=== PATIENT | male | born 1965 | race Hispanic/Latino ===

== ENCOUNTER 2018-02-05 17:10 | Observation (INO) | payer OTHER, SELFPAY ==
[2018-02-05] MEDS ORDERED: Albuterol-Ipratrop 3 mg / 0.5 (3 ml) UD INH STA ×3 (17:39→17:40)
[2018-02-05] MEDS ORDERED: Azithromycin 500 MG in Sodium Chloride 0.9% 250 ML IVPB STA (17:42)
--- NOTE | 2018-02-05 17:44 | ED PDOC ---
HPI: General Adult Time Seen by Provider: 02/05/18 17:40 Chief Complaint (Nursing): Chest Pain Chief Complaint (Provider): shortness of breath History Per: Patient History/Exam Limitations: language barrier (malay speaking) Onset/Duration Of Symptoms: Days (7) Have you had recent travel within the past 21 days to any of the following countries: [place], [place], [place] or [place]?: No Current Symptoms Are (Timing): Still Present Severity: Severe Pain Scale Rating Of: 10 Additional Complaint(s): pt p/w + ~ 1 week onset of sob/coughing, dry/non-productive, + wheezing, + worsening right sided chest pain; pain was severe today and as a result he came to the ED for further eval; pt states he was evaluated at [facility] 4 days ago for the same complaints and was prescribed ABX and coughing medications ; pt states no improvement; pt states no fever/chills/sweats, + dizziness/ lightheadedness, no abd pain, no n/v, no numbness/tingling, no urinary/bowel changes, no rashes; no gross bleeding, no fall/trauma/sick contact, no international travel consultant denied other complaints pt is here for further eval PCP: None Past Medical History Reviewed: Historical Data, Nursing Documentation, Vital Signs Vital Signs: Last Vital Signs Temp 98.4 F 02/05/18 19:07 Pulse 91 H 02/05/18 19:07 Resp 18 02/05/18 19:07 BP 147/89 02/05/18 19:07 Pulse Ox 97 02/05/18 19:18 - Medical History PMH: Cardia Arrhythmia, Hyperlipidemia, Kidney Stones, Chronic Kidney Disease - Surgical History Other surgeries: kidney surgery - Family History Family History: States: No Known Family Hx - Living Arrangements Living Arrangements: With Family - Social History Current smoker - smoking cessation education provided: No Ex-Smoker (has not smoked in the last 12 months): No Alcohol: None Drugs: Denies - Home Medications Home Medications: Ambulatory Orders Medication Instructions Recorded Ondansetron [Zofran] 4 mg PO Q8H #5 tab 11/25/15 - Allergies Allergies/Adverse Reactions: Allergies Allergy/AdvReac Type Severity Reaction Status Date / Time No Known Allergies Allergy Verified 02/05/18 17:20 Review of Systems ROS Statement: Except As Marked, All Systems Reviewed And Found Negative Constitutional: Negative for: Fever, Weakness Eyes: Negative for: Pain ENT: Negative for: Ear Pain Cardiovascular: Positive for: Chest Pain Respiratory: Positive for: Cough, Shortness of Breath, Wheezing Gastrointestinal: Negative for: Nausea, Vomiting, Abdominal Pain Genitourinary Male: Negative for: Dysuria, Hematuria Musculoskeletal: Negative for: Neck Pain, Back Pain Skin: Negative for: Rash Neurological: Positive for: Weakness, Dizziness. Negative for: Altered Mental Status, Headache Psych: Negative for: Anxiety, Depression Physical Exam - Reviewed Nursing Documentation Reviewed: Yes Vital Signs Reviewed: Yes (elevated BP) - Physical Exam Comments: General: alert/awake, GCS = 15, oriented x 3, resting in bed, uncomfortable, cooperative, interactive; mild distress due to pain; + infrequent dry coughing noted Head: NC/AT EYE: PERRLA, EOMI, sclera anicteric, no nystagmus, no photophobia; visual field intact b/l Facial: WNL Oral: uvula/tongue are midline, no exudate/lesions, no drooling/stridor, no dysphonia; intact dentitions; moist oral mucosa NECK: intact ROM, no midline tenderness, no nuchal rigidity, no meningeal signs ; no step off Chest: + wheezing b/l, ? mild rhonchi to right lung field, no rales b/l, no tachypenia, no accessory muscle use noted Cardiac: +S1, +S2, no m/r/r, + tachycardia Abdominal: +BS, soft/nd/nt, well nourished patient; no masses/rebound/guarding/ rigidity; no arzate's sign, no mcburney's point tenderness Extremities: intact ROM, strength 5/5 grossly intact in all limbs, neurovasc intact b/l; + ambulatory; reflex +2/2; no jinny's sign b/l; no pitting edema noted b/l BACK: no step off, no midline tenderness, NO crepitus, no gross deformities noted; Intact ROM SKIN: cap refill ~ 1 sec, no ulcerations, no petechiae, no rashes/lesions NEURO: CNII-XII WNL, no facial asymmetries, no slurr speech, oriented x 3 NIH stroke scale ~ 0 Psych: normal insight, normal affect; follows command with ease - Laboratory Results Result Diagrams: 02/05/18 17:59 02/05/18 17:59 - ECG ECG: Positive for: Interpreted By Me, Viewed By Me Interpretation Of ECG: Sinus tach at 105 bpm, normal axis, no ectopy, qs in leads III, inverted T in leads III, no st-t changes, BORDERLINE EKG; unchanged compare with old ekg 2015 O2 Sat by Pulse Oximetry: 95 Pulse Ox Interpretation: Normal - Radiology X-Ray: Viewed By Me, Read By Radiologist - Progress ED Course And Treament: HISTORY: COMPARISON: 11/23/2015. TECHNIQUE: Chest PA and lateral FINDINGS: LINES AND TUBES: None. LUNG AND PLEURA: The lungs are hyperinflated and there is peribronchial thickening with chronic changes in both lungs. No pleural effusion or pneumothorax. No consolidation. HEART AND MEDIASTINUM: The heart is not enlarged. The hilar and mediastinal contours are within normal limits. SKELETAL STRUCTURES: The bony structures are within normal limits for the patient's age. VISUALIZED UPPER ABDOMEN: Normal. OTHER FINDINGS: None. IMPRESSION: No active pulmonary disease. COPD. ------ 7:00pm - pt continues to receive his treatment feeling some improvement pt continues to have right sided chest pain 7:07pm - pt is endorsed to overnight ER attending, Dr Garsia, pt is awaiting CTA of chest and re-evaluation, pt can be dispositioned accordingly Re-evaluation Time: 19:05 Condition: Improving,but remains with symptoms Nebulizer Treatments/Peak Flow - Duonebs Number of Bronchodilator Doses given?: 3 - Steroid Treatment Steroid: IV - Clinical Response Clinical Response: Improved Medical Decision Making Medical Decision Making: Impression: sob/coughing/right chest pain x 1 week i have consider all the differential diagnosis regarding pt's chief medical complaints/clinical findings, including but are not limited to: unlikely PE, bronchitis, asthma/RAD; unlikely acs A/P: sob/coughing, right chest pain - labx - xray - treatments - if persistent elevated HR/pain, will consider CTA chest - supportive care - observe/reevaluation Disposition - Clinical Impression Clinical Impression: Shortness of breath, Chest pain, Cough, Acute bronchitis - Patient ED Disposition Is Patient to be Admitted: Transfer of Care Discussed With : Mitchell Garsia Counseled Patient/Family Regarding: Studies Performed, Diagnosis, Rx Given - Disposition Disposition Time: 19:07 Condition: STABLE Forms: [facility] (Turkish) Print Language: WELSH
--- NOTE | 2018-02-05 18:00 | RAD ---
HISTORY: COMPARISON: 11/23/2015. TECHNIQUE: Chest PA and lateral FINDINGS: LINES AND TUBES: None. LUNG AND PLEURA: The lungs are hyperinflated and there is peribronchial thickening with chronic changes in both lungs. No pleural effusion or pneumothorax. No consolidation. HEART AND MEDIASTINUM: The heart is not enlarged. The hilar and mediastinal contours are within normal limits. SKELETAL STRUCTURES: The bony structures are within normal limits for the patient's age. VISUALIZED UPPER ABDOMEN: Normal. OTHER FINDINGS: None. IMPRESSION: No active pulmonary disease. COPD.
[2018-02-05 18:06] LABS: BASO # 0.1 K/uL (0.0-0.2); BASO % 0.6 % (0.0-2.0); EOS # 0.4 K/uL (0.0-0.7); EOS % 4.1 % (0.0-4.0); HEMOGLOBIN 15.9 g/dL (12.0-18.0); LYMPH # 2.8 K/uL (1.0-4.3); LYMPH % 30.9 % (20.0-40.0); MEAN CELL VOLUME 90.3 fl (80.0-94.0); MEAN CORPUSCULAR HEMOGLOBIN 30.9 pg (27.0-31.0); MEAN CORPUSCULAR HGB CONC 34.2 g/dL (33.0-37.0); MEAN PLATELET VOLUME 8.6 fl (7.2-11.7); MONO # 0.6 K/uL (0.0-0.8); MONO % 6.8 % (0.0-10.0); NEUT # 5.2 K/uL (1.8-7.0); NEUT % 57.6 % (50.0-75.0); RBC 5.13 Mil/uL (4.40-5.90); RED CELL DISTRIBUTION WIDTH 13.3 % (11.5-14.5); WHITE BLOOD COUNT 8.9 K/uL (4.8-10.8)
[2018-02-05 18:12] LABS: SQUAMOUS EPITHIAL < 1 /hpf (0-5); URINE BILIRUBIN NEGATIVE (NEGATIVE); URINE BLOOD NEGATIVE (NEGATIVE); URINE CLARITY CLEAR (Clear); URINE COLOR YELLOW (YELLOW); URINE GLUCOSE (UA) 50 mg/dL (Normal); URINE LEUKOCYTE ESTERASE NEG Leu/uL (Negative); URINE PROTEIN NEGATIVE (NEGATIVE); URINE UROBILINOGEN 0.2-1.0 mg/dL (0.2-1.0)
[2018-02-05 18:16] LABS: BLOOD UREA NITROGEN 14 mg/dl (9-20); GFR AFRICAN-AMERICAN > 60; GFR NON-AFRICAN AMERICAN > 60
[2018-02-05] MEDS ORDERED: cefTRIAXone (Rocephin) 1 gm Inj ONE (18:19)
[2018-02-05] MEDS ORDERED: Albuterol-Ipratrop 3 mg / 0.5 (3 ml) UD ONE ×2 (18:20→18:21)
[2018-02-05 18:29] LABS: CALCIUM 9.2 mg/dL (8.4-10.2)
[2018-02-05] MEDS ORDERED: Sodium Chloride 0.9% 50 ML IV ONE (18:30)
[2018-02-05] MEDS ORDERED: Iodixanol 320 MG/ML 100 ML BOTTLE IV ONE (18:30)
[2018-02-05 18:43] LABS: B-TYPE NATRIURETIC PEPTIDE 27.8 pg/ml (0-900)
[2018-02-05] MEDS ORDERED: Potassium Chloride 10 mEq ER Tab PO ONE ×2 (18:59→19:50)
--- NOTE | 2018-02-05 19:18 | ED PDOC ---
- Laboratory Results Result Diagrams: 02/05/18 17:59 02/05/18 17:59 - ECG O2 Sat by Pulse Oximetry: 97 (RA) Pulse Ox Interpretation: Normal Medical Decision Making Medical Decision Making: Time: 1899 Patient signed out to me by Dr. Luke pending CT angiography chest and reevaluation. Time: 2013 CT Scan ANGIO CHEST PE PROTOCOL Exam Date: 02/05/18 This imaging exam was performed at [facility] EXAM: CT Angiography Chest With Intravenous Contrast CLINICAL HISTORY: 52 years old, male; Pain; Chest pain; Right-sided chest pain; Additional info: Cough/chest pain (right) x 1 week TECHNIQUE: Axial computed tomographic angiography images of the chest with intravenous contrast using pulmonary embolism protocol. All CT scans at this facility use one or more dose reduction techniques, viz.: automated exposure control; ma/kV adjustment per patient size (including targeted exams where dose is matched to indication; i.e. head); or iterative reconstruction technique. MIP reconstructed images were created and reviewed. Coronal and sagittal reformatted images were created and reviewed. CONTRAST: 95 mL of [id number] administered intravenously. COMPARISON: CR - CHEST TWO VIEWS (PA/LAT) 2015-11-23 16:19 FINDINGS: Limitations: Motion artifact - mild. Pulmonary arteries: No definite pulmonary embolism. Aorta: No aneurysm. No dissection. Lungs: Minimal peripheral atelectasis/scarring. No consolidation. Few pulmonary nodules, up to 0.5 cm. Pleural space: No significant effusion. No pneumothorax. Heart: No cardiomegaly. No significant pericardial effusion. Bones/joints: Mild degenerative changes of spine. No acute fracture. Soft tissues: Unremarkable. Lymph nodes: No pathologically enlarged lymph nodes. Liver: Fatty infiltration. IMPRESSION: 1. No definite CT evidence of pulmonary embolism. 2. Pulmonary nodules. For low-risk patients, no follow-up is necessary. For high-risk patients (smoking history or other known risk factors) an optional CT at 12 months could be performed. 3. Incidental/non-acute findings are described above. Patient reports of persistent pain given 2 ED visits for similar complaints. Patient admitted and case referred to Dr. Shai Harris. Scribe Attestation: Documented by Sunil Ugalde, acting as a scribe for Frankie Pedraza MD Provider Scribe Attestation: All medical record entries made by the Scribe were at my direction and personally dictated by me. I have reviewed the chart and agree that the record accurately reflects my personal performance of the history, physical exam, medical decision making, and the department course for this patient. I have also personally directed, reviewed, and agree with the discharge instructions and disposition. Disposition - Clinical Impression Clinical Impression: Shortness of breath, Chest pain, Cough, Acute bronchitis - POA Present On Arrival: None - Disposition Disposition: Admitted as In-Patient Disposition Time: 20:30 Condition: STABLE Forms: [employer] (Latvian) Print Language: EQUATORIAL GUINEAN
[2018-02-05] MEDS ORDERED: Azithromycin 500 MG IV IVPB ONE (19:50)
--- NOTE | 2018-02-05 20:14 | CT ---
EXAM: CT Angiography Chest With Intravenous Contrast CLINICAL HISTORY: 52 years old, male; Pain; Chest pain; Right-sided chest pain; Additional info: Cough/chest pain (right) x 1 week TECHNIQUE: Axial computed tomographic angiography images of the chest with intravenous contrast using pulmonary embolism protocol. All CT scans at this facility use one or more dose reduction techniques, viz.: automated exposure control; ma/kV adjustment per patient size (including targeted exams where dose is matched to indication; i.e. head); or iterative reconstruction technique. MIP reconstructed images were created and reviewed. Coronal and sagittal reformatted images were created and reviewed. CONTRAST: 95 mL of [id number] administered intravenously. COMPARISON: CR - CHEST TWO VIEWS (PA/LAT) 2015-11-23 16:19 FINDINGS: Limitations: Motion artifact - mild. Pulmonary arteries: No definite pulmonary embolism. Aorta: No aneurysm. No dissection. Lungs: Minimal peripheral atelectasis/scarring. No consolidation. Few pulmonary nodules, up to 0.5 cm. Pleural space: No significant effusion. No pneumothorax. Heart: No cardiomegaly. No significant pericardial effusion. Bones/joints: Mild degenerative changes of spine. No acute fracture. Soft tissues: Unremarkable. Lymph nodes: No pathologically enlarged lymph nodes. Liver: Fatty infiltration. IMPRESSION: 1. No definite CT evidence of pulmonary embolism. 2. Pulmonary nodules. For low-risk patients, no follow-up is necessary. For high-risk patients (smoking history or other known risk factors) an optional CT at 12 months could be performed. 3. Incidental/non-acute findings are described above.
--- NOTE | 2018-02-05 21:11 | CP.PCM.HP ---
History of Present Illness - History of Present Illness History of Present Illness: CC: R chest/shoulder/back pain HPI: This is a 52 y/o male with ?HTN presenting with acute onset R chest/ shoulder/back pain x 7 days. Pain is episodic, with no associated SOB. No prior injury or strain. No f/c/n/v/d. Occasional cough. Nothing makes symptoms better or worse. Patient apparently had some w/u at [facility] recently. ROS: 14 systems reviewed, negative other than HPI MHx: ?HTN SHx: None Allergies: NKDA Medications: States none Family Hx: Did not know parents Social Hx: Lives alone, no tobacco, no EtOH Present on Admission - Present on Admission Any Indicators Present on Admission: No Past Patient History - Infectious Disease Hx of Infectious Diseases: None - Past Medical History & Family History Past Medical History?: Yes - Past Social History Alcohol: None Drugs: Denies - CARDIAC Hx Cardia Arrhythmia: Yes - RENAL Hx Chronic Kidney Disease: Yes Hx Kidney Stones: Yes - MUSCULOSKELETAL/RHEUMATOLOGICAL Hx Falls: No - PSYCHIATRIC Hx Substance Use: No - SURGICAL HISTORY Hx Angioplasty: Yes Other/Comment: kidney stones removed - ANESTHESIA Hx Anesthesia: Yes Hx Anesthesia Reactions: No Meds Allergies/Adverse Reactions: Allergies Allergy/AdvReac Type Severity Reaction Status Date / Time No Known Allergies Allergy Verified 02/05/18 17:20 Physical Exam - Constitutional Appears: No Acute Distress - Head Exam Head Exam: ATRAUMATIC, NORMOCEPHALIC - ENT Exam ENT Exam: Mucous Membranes Moist - Neck Exam Neck exam: Positive for: Full Rom - Respiratory Exam Respiratory Exam: Clear to Auscultation Bilateral, NORMAL BREATHING PATTERN - Cardiovascular Exam Cardiovascular Exam: REGULAR RHYTHM, +S1, +S2 - GI/Abdominal Exam GI & Abdominal Exam: Normal Bowel Sounds, Soft - Extremities Exam Extremities exam: Positive for: full ROM, normal inspection - Neurological Exam Neurological exam: Alert, CN II-XII Intact, Oriented x3 - Psychiatric Exam Psychiatric exam: Normal Affect, Normal Mood - Skin Skin Exam: Dry, Warm Results - Vital Signs Recent Vital Signs: Last Vital Signs Temp 98.4 F 02/05/18 19:07 Pulse 91 H 02/05/18 19:07 Resp 18 02/05/18 19:07 BP 147/89 02/05/18 19:07 Pulse Ox 97 02/05/18 21:04 - Labs Result Diagrams: 02/05/18 17:59 02/05/18 17:59 Labs: Laboratory Results - last 24 hr 02/05/18 02/05/18 02/05/18 17:53 17:59 17:59 WBC 8.9 RBC 5.13 Hgb 15.9 Hct 46.3 MCV 90.3 MCH 30.9 MCHC 34.2 RDW 13.3 Plt Count 200 MPV 8.6 Neut % (Auto) 57.6 Lymph % (Auto) 30.9 [place] % (Auto) 6.8 Eos % (Auto) 4.1 H Baso % (Auto) 0.6 Neut # (Auto) 5.2 Lymph # (Auto) 2.8 [place] # (Auto) 0.6 Eos # (Auto) 0.4 Baso # (Auto) 0.1 Sodium 143 Potassium 3.5 L Chloride 103 Carbon Dioxide 22 Anion Gap 22 H BUN 14 Creatinine 0.8 Est GFR ( Amer) > 60 Est GFR (Non-Af Amer) > 60 Random Glucose 178 H Calcium 9.2 Troponin I < 0.0120 NT-Pro-B Natriuret Pep 27.8 TSH 3rd Generation 3.52 Urine Color Yellow Urine Clarity Clear Urine pH 6.0 Ur Specific [place] 1.021 Urine Protein Negative Urine Glucose (UA) 50 Urine Ketones Negative Urine Blood Negative Urine Nitrate Negative Urine Bilirubin Negative Urine Urobilinogen 0.2-1.0 Ur Leukocyte Esterase Neg Urine RBC (Auto) 3 Urine Microscopic WBC 1 Ur Squamous Epith Cells < 1 - EKG Data EKG Interpreted by: Myself EKG shows normal: Sinus rhythm Rate: Tachycardia - EKG Data EKG comments: Sinus tach - Imaging and Cardiology CT scan - chest Status: Report reviewed by me (no PE, no acute findings to otherwise explain pain) Assessment & Plan (1) Chest pain Assessment and Plan: 52 y/o male with ?HTN but not on any treatment presenting with CP. Appears to be MSK, but need to r/o ACS. -Tele obs -Serial trops -Lipid panel, given patient risk factors and minimal medical f/u -A1c in AM given patient elevated glucose given minimal f/u -AM EKG -Pain control per scale -SQ Lovenox for DVT PPx Status: Acute (2) Hypertension Status: Acute (3) DVT prophylaxis Status: Acute
[2018-02-05] MEDS: Oxycodone/Acetaminophen 5/325 mg Tab PO PRN (22:26)
[2018-02-05] MEDS ORDERED: Oxycodone/Acetaminophen 5/325 mg Tab ONE (22:27)
[2018-02-06 00:19] VITALS: RESP 18
[2018-02-06 05:56] LABS: HDL CHOLESTEROL 36 MG/DL (30-70)
[2018-02-06 06:07] LABS: LDL CHOLESTEROL 163 mg/dL (0-129)
[2018-02-06] MEDS: Oxycodone/Acetaminophen 5/325 mg Tab PO PRN (08:57)
[2018-02-06] MEDS ORDERED: Enoxaparin 40 mg Syringe SC SCH (09:00)
[2018-02-06] MEDS ORDERED: Lidocaine 5% Patch TD SCH (11:45)
--- NOTE | 2018-02-06 12:02 | CP.PCM.DIS ---
Provider - Provider Date of Admission: 02/05/18 20:30 Attending physician: Steven Gibbons MD Time Spent in preparation of Discharge (in minutes): 40 Diagnosis - Discharge Diagnosis (1) Shingles Status: Suspected (2) Chest pain Status: Acute (3) Hyperlipidemia Status: Acute Hospital Course - Lab Results Lab Results: Most Recent Lab Values WBC 8.9 K/uL (4.8-10.8) 02/05/18 17:59 RBC 5.13 Mil/uL (4.40-5.90) 02/05/18 17:59 Hgb 15.9 g/dL (12.0-18.0) 02/05/18 17:59 Hct 46.3 % (35.0-51.0) 02/05/18 17:59 MCV 90.3 fl (80.0-94.0) 02/05/18 17:59 MCH 30.9 pg (27.0-31.0) 02/05/18 17:59 MCHC 34.2 g/dL (33.0-37.0) 02/05/18 17:59 RDW 13.3 % (11.5-14.5) 02/05/18 17:59 Plt Count 200 K/uL (130-400) 02/05/18 17:59 MPV 8.6 fl (7.2-11.7) 02/05/18 17:59 Neut % (Auto) 57.6 % (50.0-75.0) 02/05/18 17:59 Lymph % (Auto) 30.9 % (20.0-40.0) 02/05/18 17:59 [place] % (Auto) 6.8 % (0.0-10.0) 02/05/18 17:59 Eos % (Auto) 4.1 % (0.0-4.0) H 02/05/18 17:59 Baso % (Auto) 0.6 % (0.0-2.0) 02/05/18 17:59 Neut # (Auto) 5.2 K/uL (1.8-7.0) 02/05/18 17:59 Lymph # (Auto) 2.8 K/uL (1.0-4.3) 02/05/18 17:59 [place] # (Auto) 0.6 K/uL (0.0-0.8) 02/05/18 17:59 Eos # (Auto) 0.4 K/uL (0.0-0.7) 02/05/18 17:59 Baso # (Auto) 0.1 K/uL (0.0-0.2) 02/05/18 17:59 Sodium 143 mmol/l (132-148) 02/05/18 17:59 Potassium 3.5 MMOL/L (3.6-5.0) L 02/05/18 17:59 Chloride 103 mmol/L (98-107) 02/05/18 17:59 Carbon Dioxide 22 mmol/L (22-30) 02/05/18 17:59 Anion Gap 22 (10-20) H 02/05/18 17:59 BUN 14 mg/dl (9-20) 02/05/18 17:59 Creatinine 0.8 mg/dl (0.8-1.5) 02/05/18 17:59 Est GFR ( Amer) > 60 02/05/18 17:59 Est GFR (Non-Af Amer) > 60 02/05/18 17:59 Random Glucose 178 mg/dL (75-110) H 02/05/18 17:59 Hemoglobin A1c 5.9 % (4.2-6.5) 02/06/18 04:45 Calcium 9.2 mg/dL (8.4-10.2) 02/05/18 17:59 Troponin I < 0.0120 ng/mL (0.00-0.120) 02/06/18 04:45 NT-Pro-B Natriuret Pep 27.8 pg/ml (0-900) 02/05/18 17:59 Triglycerides 84 mg/DL (0-149) 02/06/18 04:45 Cholesterol 232 mg/dL (0-199) H 02/06/18 04:45 LDL Cholesterol Direct 163 mg/dL (0-129) H 02/06/18 04:45 HDL Cholesterol 36 MG/DL (30-70) 02/06/18 04:45 TSH 3rd Generation 3.52 mIU/ML (0.46-4.68) 02/05/18 17:59 Urine Color Yellow (YELLOW) 02/05/18 17:53 Urine Clarity Clear (Clear) 02/05/18 17:53 Urine pH 6.0 (5.0-8.0) 02/05/18 17:53 Ur Specific [place] 1.021 (1.003-1.030) 02/05/18 17:53 Urine Protein Negative mg/dL (NEGATIVE) 02/05/18 17:53 Urine Glucose (UA) 50 mg/dL (Normal) 02/05/18 17:53 Urine Ketones Negative mg/dL (NEGATIVE) 02/05/18 17:53 Urine Blood Negative (NEGATIVE) 02/05/18 17:53 Urine Nitrate Negative (NEGATIVE) 02/05/18 17:53 Urine Bilirubin Negative (NEGATIVE) 02/05/18 17:53 Urine Urobilinogen 0.2-1.0 mg/dL (0.2-1.0) 02/05/18 17:53 Ur Leukocyte Esterase Neg Jessie/uL (Negative) 02/05/18 17:53 Urine RBC (Auto) 3 /hpf (0-3) 02/05/18 17:53 Urine Microscopic WBC 1 /hpf (0-5) 02/05/18 17:53 Ur Squamous Epith Cells < 1 /hpf (0-5) 02/05/18 17:53 - Hospital Course Hospital Course: 52 y/o gent came in complaining of right sided chest pain. EKG done : no ST T changes. CT of the chest ruled out Pulm Embolism. Noted a small nodule, the patient is an nonsmoker - discussed need to ffup as outpt. Patient was started on ASA, statin and analgesics. Troponin x 3 negative. On examination, i noticed some rashes on the right chest wall however these were not vesicular however patient's pain seem to be neuropathic, and following a dermatome . Patient was empirically started on Acyclovir , Gabapentin and Lidoderm. Discharge Exam - Head Exam Head Exam: ATRAUMATIC, NORMAL INSPECTION, NORMOCEPHALIC - Eye Exam Eye Exam: EOMI, Normal appearance, PERRL Pupil Exam: NORMAL ACCOMODATION - ENT Exam ENT Exam: Mucous Membranes Moist, Normal External Ear Exam - Neck Exam Neck exam: Full Rom - Respiratory Exam Respiratory Exam: NORMAL BREATHING PATTERN. absent: Respiratory Distress - Cardiovascular Exam Cardiovascular Exam: REGULAR RHYTHM, +S1, +S2 Additional comments: right side of chest with some small papular rashes , tender to palpation. - GI/Abdominal Exam GI & Abdominal Exam: Normal Bowel Sounds, Soft. absent: Tenderness - Extremities Exam Extremities exam: full ROM, normal capillary refill, pedal pulses present - Back Exam Back exam: FULL ROM. absent: CVA tenderness (L), CVA tenderness (R) - Neurological Exam Neurological exam: Alert, CN II-XII Intact, Normal Gait, Oriented x3, Reflexes Normal - Psychiatric Exam Psychiatric exam: Normal Affect, Normal Mood - Skin Skin Exam: Dry, Normal Color, Warm Discharge Plan - Discharge Medications Prescriptions: Atorvastatin [Lipitor] 10 mg PO DAILY #30 tab Gabapentin [Neurontin] 100 mg PO BID #30 capsule Lidocaine 5% [Lidoderm] 1 ea TD DAILY #15 patch Valacyclovir HCl [Valtrex] 1,000 mg PO TID #15 tablet - Follow Up Plan Condition: GOOD Disposition: HOME/ ROUTINE Instructions: Shingles (DC), Chest Pain (DC) Additional Instructions: hacer sammi con la clinica en 7-10 bustillos Referrals: [facility] [place] [Outside]
[2018-02-06 12:04] VITALS: BP 132/66; PULSE 93; TEMP 97.9; O2SAT 95
== END 2018-02-06 15:00 | disposition home or self-care (01) ==
LOC: H.ER 17:10 → H.ERHOLD 20:30 → H.TEL 23:07
PROVIDERS: ADMIT Internal Medicine; ATTEND Internal Medicine
DX: B02.9 Zoster without complications (principal); J44.0 Chronic obstructive pulmonary disease with (acute) lower respiratory infection; J20.9 Acute bronchitis, unspecified; N18.9 Chronic kidney disease, unspecified; Z87.442 Personal history of urinary calculi; M54.9 Dorsalgia, unspecified; R07.89 Other chest pain; R73.9 Hyperglycemia, unspecified; E78.5 Hyperlipidemia, unspecified; I12.9 Hypertensive chronic kidney disease with stage 1 through stage 4 chronic kidney disease, or unspecified chronic kidney disease
CPT/HCPCS: 36415; 71046; 71275; 80048; 80061; 81003; 83036; 83880; 84443; 84484; 85025; 96365; 96374; 99285; G0378; J0456; J0696; J1650; J1885; J2270; J2930; J7050; Q9967